=== PATIENT | male | born 1980 | race Caucasian/White ===

== ENCOUNTER → 2020-06-30 | Outpatient (CLI) | payer OTHER ==
[~2020-06-30] MED LIST: PERCOCET 325 MG1 TA2 PO; PREDNICOT20 MG PO
== END | disposition home or self-care (01) ==
LOC: COVID19 12:47
PROVIDERS: ATTEND Family Medicine
DX: Z20.828 Contact with and (suspected) exposure to other viral communicable diseases (principal)

== ENCOUNTER → 2022-09-18 | Outpatient (CLI) | payer OTHER ==
[2022-09-18 15:59] LABS: HEMATOCRIT 39.1 % (42.0-52.0); MEAN CELL VOLUME 91.1 fl (80.0-94.0); MEAN PLATELET VOLUME 9.1 fl (9.6-12.3); RED BLOOD COUNT 4.29 10*6/uL (4.50-5.90); RED CELL DISTRI WIDTH 11.9 % (0-14.5); WHITE BLOOD COUNT 7.7 10*3/uL (4.8-10.8)
[2022-09-18 16:13] LABS: ALKALINE PHOSPHATASE 53 U/L (46-116); BUN 11 mg/dl (9-23); CHLORIDE 105 mmol/L (98-107); CHOLESTEROL 172 mg/dL (<200); LDL CHOLESTEROL 77 mg/dL (9-159); POTASSIUM 3.9 mmol/L (3.4-5.1); SGPT/ALT 17 U/L (10-49); TOTAL PROTEIN 7.3 gm/dL (6.0-8.0); TRIGLYCERIDES 249 mg/dl (<150)
== END | disposition home or self-care (01) ==
LOC: LAB 15:39
PROVIDERS: ATTEND Family Medicine
DX: Z00.00 Encounter for general adult medical examination without abnormal findings (principal); E74.00 Glycogen storage disease, unspecified; F41.1 Generalized anxiety disorder

== ENCOUNTER → 2023-06-02 | Outpatient (CLI) | payer OTHER ==
[2023-06-02 14:16] LABS: HEMATOCRIT 40.7 % (42.0-52.0); MEAN CELL VOLUME 94.9 fl (80.0-94.0); MEAN CORPUSCULAR HGB 32.6 pg (27.0-31.0); MEAN CORPUSCULAR HGB CONC 34.4 g/dl (33.0-37.0); MEAN PLATELET VOLUME 9.2 fl (9.6-12.3); RED BLOOD COUNT 4.29 10*6/uL (4.50-5.90); RED CELL DISTRI WIDTH 11.8 % (0-14.5); WHITE BLOOD COUNT 5.9 10*3/uL (4.8-10.8)
[2023-06-02 14:53] LABS: ALKALINE PHOSPHATASE 47 U/L (46-116); BUN 6 mg/dl (9-23); CHLORIDE 105 mmol/L (98-107); CHOLESTEROL 201 mg/dL (<200); LDL CHOLESTEROL 110 mg/dL (9-159); POTASSIUM 4.1 mmol/L (3.4-5.1); SGPT/ALT 14 U/L (5-49); TOTAL PROTEIN 7.7 gm/dL (6.0-8.0); TRIGLYCERIDES 164 mg/dl (<150)
== END | disposition home or self-care (01) ==
LOC: LAB 13:33
PROVIDERS: ATTEND Family Medicine
DX: M17.0 Bilateral primary osteoarthritis of knee (principal); Z00.00 Encounter for general adult medical examination without abnormal findings; E78.00 Pure hypercholesterolemia, unspecified; E74.9 Disorder of carbohydrate metabolism, unspecified

== ENCOUNTER → 2024-10-21 | Outpatient (CLI) | payer BC ==
[2024-10-21 10:03] LABS: HEMATOCRIT 42.4 % (42.0-52.0); MEAN CORPUSCULAR HGB 31.5 pg (27.0-31.0); MEAN CORPUSCULAR HGB CONC 33.5 g/dl (33.0-37.0); MEAN PLATELET VOLUME 8.9 fl (9.6-12.3); RED BLOOD COUNT 4.51 10*6/uL (4.50-5.90); RED CELL DISTRI WIDTH 12.7 % (0-14.5); WHITE BLOOD COUNT 5.6 10*3/uL (4.8-10.8)
[2024-10-21 10:32] LABS: ALKALINE PHOSPHATASE 49 U/L (46-116); BUN 10 mg/dl (9-23); CHLORIDE 103 mmol/L (98-107); CHOLESTEROL 200 mg/dL (<200); CPK 135 U/L (34-171); LDL CHOLESTEROL 123 mg/dL (9-159); POTASSIUM 3.8 mmol/L (3.4-5.1); SGPT/ALT 33 U/L (5-49); TOTAL PROTEIN 7.9 gm/dL (6.0-8.0); TRIGLYCERIDES 125 mg/dl (<150); VITAMIN D, 25-HYDROXY 43.3 ng/mL (30-100)
== END | disposition home or self-care (01) ==
LOC: LAB 09:30
PROVIDERS: ATTEND Family Medicine
DX: M16.0 Bilateral primary osteoarthritis of hip (principal); Z00.00 Encounter for general adult medical examination without abnormal findings; E78.00 Pure hypercholesterolemia, unspecified; E55.9 Vitamin D deficiency, unspecified; M25.552 Pain in left hip; M25.551 Pain in right hip; R53.83 Other fatigue